=== PATIENT | male | born 1995 | race Caucasian/White ===

== ENCOUNTER 2023-05-21 15:26 | Emergency (ER) | payer OTHER ==
[~2023-05-21] VITALS: Ht 172.7 cm; Wt 72.7 kg
[2023-05-21 15:28] VITALS: TEMP 98
[2023-05-21 16:03] LABS: ALBUMIN 4.6 gm/dL (3.5-5.0); BILIRUBIN,TOTAL 0.4 mg/dL (0.2-1.2); CALCIUM 9.2 mg/dL (8.4-10.2); CREATININE, serum 0.77 mg/dL (0.72-1.25); POTASSIUM 3.8 mmol/L (3.5-4.5); TOTAL PROTEIN 7.8 gm/dL (6.2-8.1)
[2023-05-21 16:08] LABS: BASO % 0.7 % (0.0-2.0); EOS % 0.2 % (0.0-4.0); GRAN # 2.5 K/mm3 (1.4-6.5); GRAN % 59.8 % (42.2-75.2); HEMATOCRIT 46.1 % (42.0-52.0); HEMOGLOBIN 15.8 g/dl (13.5-18.0); LYMPH # 1.5 K/mm3 (1.2-3.4); LYMPH % 34.4 % (20.0-51.0); MEAN CELL VOLUME 88 fl (80.0-100.0); MEAN CORPUSCULAR HEMOGLOBIN 30 pg (27-31); MEAN CORPUSCULAR HGB CONC 34 g/dl (33.0-37.0); MEAN PLATELET VOLUME 9.9 fl (7.4-10.4); MONO # 0.2 K/mm3 (0.1-0.6); MONO % 4.7 % (1.7-9.3); PLATELET COUNT 332 K/mm3 (130-400); RED BLOOD COUNT 5.24 M/mm3 (4.20-5.60); REDCELL DISTRIBUTION WIDTH-CV 11.7 % (11.5-14.5)
[2023-05-21 16:23] LABS: TSH w REFLEX 0.489 uIU/mL (0.350-4.940)
[2023-05-21] MEDS ORDERED: LR 1,000 ML IV ONE (16:45)
[2023-05-21 18:20] VITALS: BP 128/90; PULSE 72
== END 2023-05-21 18:57 | disposition home or self-care (01) ==
LOC: COL.ER 15:26
PROVIDERS: Emergency Medicine
DX: F10.129 Alcohol abuse with intoxication, unspecified (principal); Y90.8 Blood alcohol level of 240 mg/100 ml or more
CPT/HCPCS: J7120

== ENCOUNTER 2023-06-07 12:43 | Emergency (ER) | payer SELFPAY ==
[~2023-06-07] VITALS: Ht 170.2 cm; Wt 72.7 kg
[2023-06-07 13:17] VITALS: TEMP 97.6
[2023-06-07 14:10] VITALS: BP 132/81; PULSE 110
== END 2023-06-07 14:10 | disposition home or self-care (01) ==
LOC: COL.ER 12:43
DX: M25.522 Pain in left elbow (principal); Z87.81 Personal history of (healed) traumatic fracture

== ENCOUNTER 2023-06-08 10:52 | Emergency (ER) | payer SELFPAY ==
[~2023-06-08] VITALS: Ht 170.2 cm; Wt 72.7 kg
[2023-06-08 11:03] VITALS: BP 135/98; PULSE 131; TEMP 97.5
[2023-06-08] MEDS ORDERED: NS 1,000 ML IV ONE (11:30)
== END 2023-06-08 12:00 | disposition left against medical advice (07) ==
LOC: COL.ER 10:52
DX: R00.0 Tachycardia, unspecified (principal)